=== PATIENT | female | born 1955 | race Caucasian/White ===

== ENCOUNTER → 2020-05-25 14:35 | Outpatient (CLI) | payer MEDICARE, BC | END | disposition home or self-care (01) | LOC: D.MRI 14:35 | PROVIDERS: ATTEND Clinical Nurse Specialist Family Health | DX: M25.511 Pain in right shoulder (principal) ==

== ENCOUNTER 2020-07-28 05:15 | Day surgery (SDC) | payer MEDICARE, BC ==
[2020-07-26 10:04] LABS: HEMATOCRIT 43.2 % (36.0-48.0); HEMOGLOBIN 14.1 g/dL (12-16); MCH 30.5 pg (26.0-34.0); MCHC 32.6 g/dL (31.0-37.0); MCV 93.5 fL (80.0-100.0); MEAN PLATELET VOLUME 9.3 fL (7.4-10.4); RBC 4.62 10x6/uL (4.00-5.40); RDW 14.2 % (11.5-14.5); WBC 3.7 10x3/uL (4.8-10.8)
[~2020-07-28] VITALS: Ht 154.9 cm; Wt 54.4 kg
[~2020-07-28 05:15] MED LIST: ACETAMINOPHEN500 M1 PO; CRANBERRY PO; DIFLUCAN150 MG PO; ELAVIL10 MG PO; ERYTHROMYCIN TOPICAL; FEXOFENADINE H180 MG PO; IBUPROFEN800 MG PO; MAGNESIUM GLYCINATE PO; NORITATE60 GM TP; NYSTATIN100000 UN4 PO; PREVACID30 MG PO; SINGULAIR10 MG PO; SPIRIVA RESPIMAT4 G1 INH; VENTOLIN HFA [SP8 GM INH; VITAMIN D3 PO
[2020-07-28 06:17] VITALS: BP 135/88; Ht 154.9 cm; Wt 54.4 kg
[2020-07-28] MEDS ORDERED: DILAUDID2 MG PO (08:33)
--- NOTE | 2020-07-28 11:19 | OP ---
PATIENT NAME: GINO CHRISTENSEN MEDICAL RECORD: [id number] :55 LOCATION:[facility] ADMISSION DATE: SURGEON: RADHA LINDSEY, MAXX LEARY DATE OF OPERATION: 07/28/2020 PREOPERATIVE DIAGNOSES: 1. Impingement syndrome of the right shoulder. 2. Labral tear. POSTOPERATIVE DIAGNOSES: 1. Impingement syndrome of the right shoulder. 2. Labral tear. PROCEDURES: 1. Arthroscopic distal clavicle excision done through separate incision - 1 cm. 2. Arthroscopic labral debridement with synovectomy, chondroplasty. 3. Arthroscopic subacromial decompression with acromioplasty and bursectomy. SURGEON: Maxx Garcia MD ANESTHESIA: General. INTRAOPERATIVE COMPLICATIONS: None. SUMMARY OF PATHOLOGIC FINDINGS: The patient already had a biceps tear of the stump; however, was residual and there was substantial labral tearing in need of debridement, not reattachment. There was synovitis on the inside of the shoulder. No substantial chondromalacia was noted except for a small part of the humeral head that required minimal chondroplasty. 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 OPERATIVE SUMMARY IN DETAIL: After obtaining the appropriate preoperative orthopedic surgery consent as well as anesthetic consultation, evaluation and clearance, the patient was brought to the operating room and placed on the operating table in supine position. After adequate general laryngeal mask was administered, the patient was placed in left lateral decubitus position. All pressure points were well padded to include down leg peroneal pad as well as axillary roll. The patient was held firmly to the operating table using the vacuum pack suction system. At this point, appropriate timeout was taken and agreed upon by all. The right upper extremity was prepped and draped in routine sterile fashion, held in the Arthrex traction boom at 30 degrees of forward flexion, 30 degrees of abduction and 10 pounds of traction laterally. Arthroscopy was established in the glenohumeral joint from the posterior portal, anterior portal was established in anterior safe interval. Diagnostic arthroscopy did reveal the above findings. Arthroscopic resector was utilized to gently debride the residual biceps tendon stump as well as the labral tearing anteriorly as well as some small amount posteriorly. The residual stump was taken down. The patient did have a very minimal PASTA lesion; however, it did not represent more than a third of the undersurface. The undersurface of the PASTA area was debrided and decorticated. Attention was then turned to the subacromial space. While on the subacromial space, a tissue ablation system was utilized to debride the undersurface of the acromion and denude the undersurface of the acromion and release the coracoacromial ligament. A 5-0 barrel bur was used to perform acromioplasty at the level of acromioclavicular joint. Then, OPERATIVE REPORT [id number] GINO CHRISTENSEN through a separate anterior portal, arthroscopically distal clavicle was excised for 1 cm. The rotator cuff was indeed found to have attritional changes, but no full thickness tearing. It was debrided and all bursa was taken down anteriorly, posteriorly, laterally as well as superiorly. Having completed this, arthroscopy portals were closed in routine interrupted fashion using 4-0 Prolene. Sterile dressings were applied. The patient was awakened and taken to recovery room in stable condition. All final needle and sponge counts were correct. TRANSINT:[id number] Voice Confirmation ID: [id number] DOCUMENT ID: [id number] RADHA LINDSEY, MAXX LEARY at 1119 CC: [id number] DICTATION DATE: 07/28/20 08 MULTI C[employer] TECHNICIAN: 07/28/20 1005 [facility] [address] [place] [address]
--- NOTE | 2020-07-28 11:53 | NUR ---
IV D/C'D WITH CANNULA INTACT, PRESSURE HELD AND DRSG PLACED. DISCHARGE INSTRUCTION GIVEN AND BOTH PT AND SPOUSE VERBALIZED AN UNDERSTANDING. OPERATIVE ARM IS UNCHANGED AND NERVE BLOCK REMAIND. DISCHARGED IN STABLE CONDITION WITHOUT C/O
== END 2020-07-28 10:30 | disposition home or self-care (01) ==
LOC: D.OPS 05:15
PROVIDERS: Anesthesiology; ATTEND Orthopaedic Surgery
DX: M75.41 Impingement syndrome of right shoulder (principal); S43.431A Superior glenoid labrum lesion of right shoulder, initial encounter; X58.XXXA Exposure to other specified factors, initial encounter; M25.511 Pain in right shoulder; M66.821 Spontaneous rupture of other tendons, right upper arm